=== PATIENT | female | born 1985 | race Caucasian/White ===

== ENCOUNTER 2023-05-29 07:56 | Outpatient (CLI) | payer BC, SELFPAY | END 2023-05-29 07:57 | disposition home or self-care (01) | PROVIDERS: PCP Physician Assistant Medical; Visit Provider Physician Assistant Medical | DX: Z00.00 Encounter for general adult medical examination without abnormal findings (principal); E03.9 Hypothyroidism, unspecified; Z13.6 Encounter for screening for cardiovascular disorders; Z13.0 Encounter for screening for diseases of the blood and blood-forming organs and certain disorders involving the immune mechanism | CPT/HCPCS: 80061; 84439; 84443 ==

== ENCOUNTER 2023-08-22 08:20 | Outpatient (CLI) | payer BC, SELFPAY | END 2023-08-22 08:21 | disposition home or self-care (01) | LOC: NFLDREF 08-23 05:50 | PROVIDERS: PCP Physician Assistant Medical; Referring Provider Physician Assistant Medical; Visit Provider Physician Assistant Medical | DX: E03.9 Hypothyroidism, unspecified (principal) | CPT/HCPCS: 84439; 84443 ==

== ENCOUNTER 2023-09-16 16:44 | Outpatient (CLI) | payer BC, SELFPAY ==
--- NOTE | 2023-09-16 17:00 | US_ITS ---
Patient: SUSAN THORNTON Facility:?[facility] RIS Patient ID:?[id number] Site Patient ID:?[id number]. Site :?[id number] Study:?US-OB Pelvis TA/TV Pelvic US-09/16/2023 5:40:36 PM Ordering Physician:?Rita Rick Final Report: INDICATION: Pelvic pain TECHNIQUE: Transabdominal and transvaginal scanning was performed. Transvaginal scanning was performed to optimally evaluate the endometrium and adnexa. Ovarian blood flow was evaluated with color-flow and pulsed Doppler. COMPARISON: None. FINDINGS: The uterus is normal in size and shape. The uterus measures 7.4 x 3.5 x 4.6 cm. No myometrial mass is evident. The endometrial stripe is normal in thickness at 8 mm. A simple 2.5 x 2.3 x 2.1 cm right ovarian follicular cyst is demonstrated. The right ovary measures 4.0 x 2.6 x 2.4 cm and left 2.4 x 1.5 x 1.1 cm. Ovarian blood flow is demonstrated with color-flow and pulsed Doppler. No adnexal mass is evident. No free fluid is demonstrated. IMPRESSION: Simple 2.5 cm right ovarian follicular cyst. Otherwise negative pelvic ultrasound. Dictated by Alex uAgust MD @ 09/17/2023 10:02:14 AM Signed by:?Alex August MD @09/17/2023 10:02:14 AM (Electronic Signature)
== END 2023-09-16 16:45 | disposition home or self-care (01) ==
LOC: US 16:45
PROVIDERS: PCP Physician Assistant Medical; Visit Provider Physician Assistant Medical
DX: R10.2 Pelvic and perineal pain (principal); N83.201 Unspecified ovarian cyst, right side
CPT/HCPCS: 76830; 76856; 93976